=== PATIENT | female | born 1970 | race Two or more races ===

== ENCOUNTER 2017-10-03 10:51 | Emergency (ER) | payer BC ==
--- NOTE | 2017-10-03 11:28 | CPEKG ---
Heart Rate: 62 RR Interval: 968 P-R Interval: 152 QRSD Interval: 86 QT Interval: 404 QTC Interval: 411 P [place]: 48 QRS [place]: -15 T Wave [place]: 12 EKG Severity - OTHERWISE NORMAL ECG - EKG Impression: SINUS RHYTHM EKG Impression: BORDERLINE LEFT AXIS DEVIATION Electronically Signed By: Brady Rothman 05-Oct-2017 05:53:08
--- NOTE | 2017-10-03 11:37 | EDPHY ---
H & P Stated Complaint: Tingling to right side of face and right arm since 0800 Time Seen by Provider: 10/03/17 11:36 HPI/ROS: CHIEF COMPLAINT: Paresthesias HISTORY OF PRESENT ILLNESS: The patient presents to the ED with complaints of paresthesias to her right arm and face. The patient reports his symptoms began approximately 8 o'clock this morning. She reports that they have significantly improved. She denies any complaints of acute headache. She denies any history of fall or trauma. She denies neck pain or cervical manipulation. The patient takes no regular medications. The patient states she has had mild paresthesias in the face in the past. REVIEW OF SYSTEMS: A comprehensive 10 point review of systems is otherwise negative aside from elements mentioned in the history of present illness. Source: Patient Exam Limitations: No limitations - Personal History LMP (Females 10-55): Hysterectomy Current Tetanus Diphtheria and Acellular Pertussis (TDAP): Yes Tetanus Vaccine Date: < 10 years - Medical/Surgical History Hx Asthma: No Hx Chronic Respiratory Disease: No Hx Diabetes: No Hx Cardiac Disease: No Hx Renal Disease: No Hx Cirrhosis: No Hx Alcoholism: No Hx HIV/AIDS: No Hx Splenectomy or Spleen Trauma: No Other PMH: vocal cord nodule removed, ovarian cysts. appy - Social History Smoking Status: Never smoked - Physical Exam Exam: General Appearance: Alert, no distress Eyes: Pupils equal and round no pallor or injection ENT, Mouth: Mucous membranes moist Respiratory: There are no retractions, lungs are clear to auscultation Cardiovascular: Regular rate and rhythm Gastrointestinal: Abdomen is soft and nontender, no masses, bowel sounds normal Neurological: Alert and oriented x4, 5/5 strength all 4 extremities, cranial nerves 2-12 intact, patient reports slightly decreased sensation to light touch along the right cheek and right forearm Skin: Warm and dry, no rashes Musculoskeletal: Neck is supple nontender Extremities: symmetrical, full range of motion Psychiatric: Patient is oriented X 3, there is no agitation Constitutional: Initial Vital Signs Temperature (C) 36.7 C 10/03/17 10:52 Heart Rate 73 10/03/17 10:52 Respiratory Rate 18 10/03/17 10:52 Blood Pressure 118/75 10/03/17 10:52 O2 Sat (%) 96 10/03/17 10:52 O2 Delivery Mode Room Air Allergies/Adverse Reactions: No Known Allergies Allergy (Unverified 12/19/15 06:09) Home Medications: Medication Instructions Recorded NK [No Known Home Meds] 10/03/17 Medical Decision Making - Diagnostics EKG Interpretation: EKG: Complete interpretation has been separately recorded in the [facility] archive. Summary impression: Sinus rhythm, rate 62 Imaging Results: Imaging Impressions Brain MRI 10/03/17 11:50 Impression: Normal MRI of the brain without contrast. ED Course/Re-evaluation: Given the patient's complaints of paresthesias in the right arm and face I did obtain an MRI of the brain to evaluate for the presence of demyelinating illness versus stroke. CT angiogram of the neck was also ordered for evaluation of her carotid arteries. The patient was noted to be neurologically intact aside from decreased sensation to light touch. MRI of the brain and carotid arteries demonstrate no evidence of stroke, MS, dissection or stenosis. The patient was re-evaluated at 2:20 p.m. And I reviewed the results of her brain MRI. At this point time I feel she likely experienced a migraine variant. I do feel that she can be discharged home with instructions to return to the ED for any acutely worsening neurologic symptoms or other concerns. The patient has no clinical evidence of meningitis. Differential Diagnosis: Differential diagnosis considered includes stroke, TIA, carotid artery dissection, migraine variant, dehydration, hypokalemia - Data Points Laboratory Results: Laboratory Results 10/03/17 11:11 10/03/17 11:11 10/03/17 10/03/17 10/03/17 11:11 11:11 11:11 WBC 6.36 10^3/uL 10^3/uL (3.80-9.50) RBC 5.11 10^6/uL 10^6/uL (4.18-5.33) Hgb 15.3 g/dL g/dL (12.6-16.3) Hct 44.8 % % (38.0-47.0) MCV 87.7 fL fL (81.5-99.8) MCH 29.9 pg pg (27.9-34.1) MCHC 34.2 g/dL g/dL (32.4-36.7) RDW 12.2 % % (11.5-15.2) Plt Count 257 10^3/uL 10^3/uL (150-400) MPV 11.9 fL H fL (8.7-11.7) Neut % (Auto) 52.6 % % (39.3-74.2) Lymph % (Auto) 38.5 % % (15.0-45.0) [place] % (Auto) 8.2 % % (4.5-13.0) Eos % (Auto) 0.3 % L % (0.6-7.6) Baso % (Auto) 0.2 % L % (0.3-1.7) Nucleat RBC Rel Count 0.0 % % (0.0-0.2) Absolute Neuts (auto) 3.35 10^3/uL 10^3/uL (1.70-6.50) Absolute Lymphs (auto) 2.45 10^3/uL 10^3/uL (1.00-3.00) Absolute Monos (auto) 0.52 10^3/uL 10^3/uL (0.30-0.80) Absolute Eos (auto) 0.02 10^3/uL L 10^3/uL (0.03-0.40) Absolute Basos (auto) 0.01 10^3/uL L 10^3/uL (0.02-0.10) Absolute Nucleated RBC 0.00 10^3/uL 10^3/uL (0-0.01) Immature Gran % 0.2 % % (0.0-1.1) Immature Gran # 0.01 10^3/uL 10^3/uL (0.00-0.10) Sodium 142 mEq/L mEq/L (135-145) Potassium 3.7 mEq/L mEq/L (3.5-5.2) Chloride 105 mEq/L mEq/L (97-110) Carbon Dioxide 25 mEq/l mEq/l (22-31) Anion Gap 12 mEq/L mEq/L (8-16) BUN 8 mg/dL mg/dL (7-23) Creatinine 0.6 mg/dL mg/dL (0.6-1.0) Estimated GFR > 60 Glucose 82 mg/dL mg/dL (70-100) Calcium 8.8 mg/dL mg/dL (8.5-10.4) Beta HCG, Qual NEGATIVE Departure - Departure Disposition: Home, Routine, Self-Care Clinical Impression: Paresthesia Condition: Good Instructions: Paresthesia (ED) Additional Instructions: 1. Your MRI demonstrates no evidence of a stroke, multiple sclerosis, tumor or other concerning finding. 2. Return to the ED for markedly worsening neurologic symptoms, severe headache , fever or other concerns. 3. Please schedule a follow-up appointment with your primary care provider as needed. Referrals: Yaritza Pritchett PA [Primary Care Provider] - As per Instructions
[2017-10-03 11:56] LABS: PLATELET COUNT 257 10^3/uL (150-400)
[2017-10-03] MEDS ORDERED: GADOBUTROL 10 ML VIAL IVP ONE (13:22)
[2017-10-03 15:20] VITALS: BP 112/68
== END 2017-10-03 15:20 | disposition home or self-care (01) ==
DX: R20.2 Paresthesia of skin (principal)
CPT/HCPCS: A9585